=== PATIENT | male | born 1940 | race Caucasian/White ===

== ENCOUNTER 2024-04-10 20:36 | Emergency (ER) | payer MEDICARE ==
[~2024-04-10] VITALS: Ht 162.6 cm; Wt 60.0 kg
[2024-04-10 21:44] VITALS: TEMP 98.9
[2024-04-10 21:51] LABS: CLARITY URINE CLEAR (CLEAR); COLOR URINE YELLOW (YELLOW); GLUCOSE URINE NEGATIVE (NEGATIVE); KETONES URINE 1+ (NEGATIVE); LEUKOCYTE ESTERASE URINE NEGATIVE (NEGATIVE); NITRITE URINE NEGATIVE (NEGATIVE); OCCULT BLOOD URINE TRACE (NEGATIVE); PH URINE 7.5 (4.5-8.0); PROTEIN URINE NEGATIVE (NEGATIVE); SPECIFIC GRAVITY URINE 1.007 (1.005-1.030); UROBILINOGEN URINE 0.2 E.U./dL (0.2-1.0)
[2024-04-10 22:00] LABS: *AMPHETAMINES SCREEN URINE NEGATIVE (NEGATIVE); *BARBITURATES SCREEN URINE NEGATIVE (NEGATIVE); *BENZODIAZEPINES SCREEN URINE NEGATIVE (NEGATIVE); CANNABINOID URINE SCREEN NEGATIVE (NEGATIVE); ECSTASY MDMA SCREEN URINE NEGATIVE (NEGATIVE); METHADONE URINE SCREEN NEGATIVE (NEGATIVE); OPIATES URINE SCREEN NEGATIVE (NEGATIVE); PHENCYCLIDINE URINE SCREEN NEGATIVE (NEGATIVE)
[2024-04-10 22:02] LABS: *COCAINE SCREEN URINE NEGATIVE (NEGATIVE)
[2024-04-10 22:04] LABS: BASOPHILS % 0.8 % (0.0-2.0); HEMATOCRIT. 37.7 % (42.0-52.0); HEMOGLOBIN. 12.8 g/dL (14.0-18.0); LYMPHOCYTES % 15.8 % (20.0-50.0); MEAN CORPUSCULAR HEMOGLOBIN 32.8 pg (28.0-32.0); MEAN CORPUSCULAR HGB CONC 33.9 g/dL (31.0-37.0); MEAN CORPUSCULAR VOLUME 96.8 fL (80.0-94.0); MEAN PLATELET VOLUME 8.9 fl (7.4-10.4); MONOCYTES % 10.4 % (2.0-8.0); PLATELET 215 x1000/uL (130-400); RED BLOOD CELL COUNT 3.89 mill/uL (4.7-6.1); RED CELL DISTRIBUTION WIDTH 13.4 % (11.6-14.6); WHITE BLOOD COUNT 7.4 x1000/uL (4.5-11.0)
[2024-04-10 22:07] LABS: CHLORIDE 101 mEq/L (98-107); SODIUM 132 mEq/L (136-145)
[2024-04-10 22:08] LABS: CALCIUM 9.1 mg/dL (8.7-10.4); CARBON DIOXIDE 23 mEq/L (21-32)
[2024-04-10 22:13] LABS: CREATININE 0.6 mg/dL (0.6-1.3); GLUCOSE 106 mg/dL (70-105); UREA NITROGEN BLOOD 10 mg/dL (9-23)
[2024-04-10 22:14] LABS: PARTIAL THROMBOPLASTIN TIME 29.2 sec (23.4-31.0); PROTHROMBIN TIME 10.9 sec (9.6-11.0); TROPONIN I HIGH SENSITIVITY 17 ng/L (3.0-53)
[2024-04-10 22:26] LABS: ETHANOL BLOOD < 10 mg/dL (<10)
[2024-04-10 22:34] LABS: BACTERIA URINE TRACE; SQUAMOUS EPITHELIAL CELL URINE RARE /lpf (RARE/1+)
[2024-04-10 22:35] LABS: RBC URINE 0-2 /hpf (0-2); WBC URINE 0-2 /hpf (0-2)
[2024-04-11 00:05] LABS: TROPONIN I HIGH SENSITIVITY 17 ng/L (3.0-53)
[2024-04-11] MEDS ORDERED: ALBU6.7H15 INH (00:39)
[2024-04-11] MEDS ORDERED: ZOLP5TAB2 MT ×2 (00:39)
[2024-04-11] MEDS ORDERED: P50 MT (00:39)
[2024-04-11] MEDS: IPRATROPIUM/ALBUTEROL 0.5-3(2.5)MG/3ML NEB HHN ONE (00:41)
[2024-04-11 00:42] VITALS: PULSE 74; RESP 20; O2SAT 96
[2024-04-11] MEDS: METHYLPREDNISOLONE SOD SUCC 125MG/2ML (ACT-O-VIAL) IV ONE (01:29)
[2024-04-11 01:45] VITALS: BP 156/76; PULSE 77; RESP 17
== END 2024-04-11 01:55 | disposition home or self-care (01) ==
LOC: ER 20:36
DX: R07.89 Other chest pain (principal); F41.9 Anxiety disorder, unspecified; J45.909 Unspecified asthma, uncomplicated; G47.00 Insomnia, unspecified; I10 Essential (primary) hypertension; R41.82 Altered mental status, unspecified
CPT/HCPCS: 80305; 80048; 81003; 80320; 83880; 83605; 83690; 85025; 85610; 85730; 87040; 84484; 36415; 84145; 71045; 70450; 93005; 99285; 94640; 96374; J2919; G0480